=== PATIENT | female | born 1970 | race Caucasian/White ===

== ENCOUNTER 2021-09-13 09:36 | Outpatient (CLI) | payer OTHER | END 2021-09-13 09:37 | disposition home or self-care (01) | LOC: CSHCT 09:36 | PROVIDERS: ATTEND Internal Medicine Hematology & Oncology | DX: C50.411 Malignant neoplasm of upper-outer quadrant of right female breast (principal); C50.212 Malignant neoplasm of upper-inner quadrant of left female breast | CPT/HCPCS: 71260; 74177; 82565 ==

== ENCOUNTER 2022-03-14 09:10 | Outpatient (CLI) | payer OTHER ==
[2022-03-14] MEDS ORDERED: Iopamidol 370 76% 100 ML VIAL ONE (12:45)
== END 2022-03-14 09:11 | disposition home or self-care (01) ==
LOC: CSHCT 09:10
PROVIDERS: ATTEND Internal Medicine Hematology & Oncology
DX: C50.411 Malignant neoplasm of upper-outer quadrant of right female breast (principal); C50.212 Malignant neoplasm of upper-inner quadrant of left female breast
CPT/HCPCS: 71260; 74177; 82565; Q9967

== ENCOUNTER 2022-09-12 09:09 | Outpatient (CLI) | payer BC ==
[2022-09-12] MEDS ORDERED: Iopamidol 300 61% 100 ML VIAL FS ONE (15:19)
== END 2022-09-12 09:10 | disposition home or self-care (01) ==
LOC: CSHCT 09:09
PROVIDERS: ATTEND Internal Medicine Hematology & Oncology
DX: C50.911 Malignant neoplasm of unspecified site of right female breast (principal); C50.912 Malignant neoplasm of unspecified site of left female breast; T38.6X5A Adverse effect of antigonadotrophins, antiestrogens, antiandrogens, not elsewhere classified, initial encounter
CPT/HCPCS: 71260; 74177; Q9967

== ENCOUNTER 2025-09-05 10:22 | Emergency (ER) | payer BC ==
[2025-09-05 11:57] LABS: #Basophils 0.05 10x3/uL (0.0-0.2); #Eosinophils Less than 0.03 10x3/uL (0.0-0.5); #Monocytes 0.21 10x3/uL (0.0-1.1); #Neutrophils 4.93 10x3/uL (1.5-8.4); %Basophils 0.8 % (0.0-2.0); %Eosinophils 0.2 % (0.0-6.0); %Lymphocytes 13.4 % (18.0-47.0); %Monocytes 3.5 % (0.0-10.0); %Neutrophils 81.6 % (40.0-75.0); Hematocrit 34.3 % (34.9-44.5); Hemoglobin 11.9 g/dL (12.0-15.5); Mean Corpuscular Hemoglobin 34.9 pg (27.0-33.0); Mean Corpuscular Volume 100.6 fL (81.6-98.3); Platelet Count 251 10x3/uL (150-450); Red Blood Cell (RBC) Count 3.41 10x6/uL (3.90-5.03); White Blood Cell (WBC) Count 6.04 10x3/uL (3.5-10.5)
[2025-09-05 12:06] LABS: Anion Gap 12 mmol/L (10-20); BUN (Urea Nitrogen) 12 mg/dL (9.8-20.1); Calc. Creatinine Clearance 0 mL/min (70-130); Calcium 8.3 mg/dL (7.8-10.44); Carbon Dioxide 22 mmol/L (22-29); Chloride 110 mmol/L (98-107); Glucose 99 mg/dL (70-105); Potassium 4.0 mmol/L (3.5-5.1); Sodium 140 mmol/L (136-145)
[2025-09-05] MEDS ORDERED: Tranexamic Acid 1,000 MG/10 ML VIAL ONE (13:04)
[2025-09-05] MEDS ORDERED: AFRIN NASAL MIST 15 ML BOT ONE (13:05)
== END 2025-09-05 14:34 | disposition home or self-care (01) ==
LOC: CSHERS 10:22
DX: R04.0 Epistaxis (principal); Z79.01 Long term (current) use of anticoagulants
CPT/HCPCS: 36415; 80048; 85025; 96374